=== PATIENT | male | born 2000 | race Caucasian/White ===

== ENCOUNTER 2020-03-12 10:33 | Emergency (ER) | payer OTHER ==
[~2020-03-12] VITALS: Ht 185.4 cm; Wt 180.0 kg
--- NOTE | 2020-03-12 10:40 | PHYS DOC ---
Adult General Chief Complaint Chief Complaint: CHEST PAIN [facility] HPI Patient is a 19M with no significant past medical presented to emergency department complaining of onset of chest pain. Patient states over the last 4 days he has had an intermittent sensation of pain when he takes a deep breath on the left anterior portion of the chest. Patient states that approximately 2 hours prior to arrival he had recurrence of the sensation when he took a deep breath but this caused him to become nauseous and had one episode of nonbloody nonbilious vomiting. Patient also notes some tingling in the left shoulder. Denies any dizziness, lightheadedness, fever, chills, cough, nasal congestion. Denies any sick contacts Review of Systems Review of Systems Constitutional: Denies fever or chills [] Eyes: Denies change in visual acuity, redness, or eye pain [] HENT: Denies nasal congestion or sore throat [] Respiratory: Denies cough or shortness of breath [] Cardiovascular: No additional information not addressed in HPI [] GI: Denies abdominal pain, nausea, vomiting, bloody stools or diarrhea [] : Denies dysuria or hematuria [] Musculoskeletal: Denies back pain or joint pain [] Integument: Denies rash or skin lesions [] Neurologic: Denies headache, focal weakness or sensory changes [] Endocrine: Denies polyuria or polydipsia [] All other systems were reviewed and found to be within normal limits, except as documented in this note. Allergies Allergies Allergies Coded Allergies Type Severity Reaction Last Updated Verified No Known Drug Allergies 03/12/20 No Physical Exam Physical Exam Constitutional: Well developed, well nourished, no acute distress, non-toxic appearance. [] HENT: Normocephalic, atraumatic, bilateral external ears normal, oropharynx moist, no oral exudates, nose normal. [] Eyes: PERRLA, EOMI, conjunctiva normal, no discharge. [] Neck: Normal range of motion, no tenderness, supple, no stridor. [] Cardiovascular:Heart rate regular rhythm, no murmur [] Lungs & Thorax: Bilateral breath sounds clear to auscultation. L anteriro chesat wall tenderness Abdomen: Bowel sounds normal, soft, no tenderness, no masses, no pulsatile masses. [] Skin: Warm, dry, no erythema, no rash. [] Back: No tenderness, no CVA tenderness. [] Extremities: No tenderness, no cyanosis, no clubbing, ROM intact, no edema. [] Neurologic: Alert and oriented X 3, normal motor function, normal sensory function, no focal deficits noted. [] Psychologic: Affect normal, judgement normal, mood normal. [] EKG EKG NSR, no ST or T wave changes, normal intervals, no STEMi Radiology/Procedures Radiology/Procedures EXAM: CHEST 1 VIEW History: Chest pain COMPARISON: None available. TECHNIQUE: Single portable radiograph of the chest FINDINGS: The cardiac silhouette is unremarkable. The lungs are clear thomas aterally. The costophrenic sulci are clear and well demarcated. IMPRESSION: No radiographic evidence of an acute cardiopulmonary process. Electronically signed by: Mian Michael MD (03/12/2020 11:19 AM) [id number] Heart Score Risk Factors: Risk Factors: DM, Current or recent (<one month) smoker, HTN, HLP, family history of CAD, obesity. Risk Scores: Risk Factors: DM, Current or recent (<one month) smoker, HTN, HLP, family history of CAD, obesity. Course & Med Decision Making Course & Med Decision Making Pertinent Labs and Imaging studies reviewed. (See chart for details) 19M with nonspecific left anterior chest pain without any significant ST changes on EKG. Patient signs and symptoms are most consistent with a viral syndrome or costochondritis. Will obtain an ACS rule out to make sure there is no significant abnormality if this is negative feel the patient can be safely discharged back in the custody of elderly Dragon Disclaimer [facility] Disclaimer This electronic medical record was generated, in whole or in part, using a voice recognition dictation system. Departure Departure: Impression: Primary Impression: Non-cardiac chest pain Disposition: 01 DC HOME SELF CARE/HOMELESS Patient Instructions: Chest Pain (Nonspecific) Additional Instructions: Thank you for visiting our emergency department. You are seeing for chest pain. An EKG and a chest x-ray were performed which did not demonstrate any severe abnormality. Please return to the emergency department if you have any sudden worsening of your symptoms, dizziness and lightheadedness or fever greater than 101 degrees Scripts No Active Prescriptions or Reported Meds TREVOR YE MD Mar 12, 2020 10:40
[2020-03-12] MEDS ORDERED: ACETAMINOPHEN 325 MG TABLET PO ONE (10:45)
[2020-03-12 11:05] LABS: BASO % 0 % (0-3); EOS % 1 % (0-3); HEMATOCRIT 46.7 % (39.0-53.0); HEMOGLOBIN 15.6 g/dL (13.0-17.5); LYMPH # 1.7 x10^3/uL (1.0-4.8); LYMPH % 21 % (24-48); MEAN CORPUSCULAR HEMOGLOBIN 29 pg (25-35); MEAN CORPUSCULAR HGB CONC 33 g/dL (31-37); MEAN CORPUSCULAR VOLUME 87 fL (79-100); MONO # 0.6 x10^3/uL (0.0-1.1); MONO % 8 % (0-9); NEUT # 5.6 x10^3uL (1.8-7.7); NEUT % 71 % (31-73); PLATELET COUNT 254 x10^3/uL (140-400)
[2020-03-12 11:13] LABS: CALCIUM 9.5 mg/dL (8.5-10.1); CREATININE 1.1 mg/dL (0.7-1.3); GFR 84.5; POTASSIUM 3.9 mmol/L (3.5-5.1)
[2020-03-12 11:19] LABS: ALBUMIN 4.4 g/dL (3.4-5.0); ALBUMIN/GLOBULIN RATIO 1.5 (1.0-1.7); TOTAL BILIRUBIN 0.4 mg/dL (0.2-1.0); TOTAL PROTEIN 7.3 g/dL (6.4-8.2)
--- NOTE | 2020-03-12 11:21 | RAD ---
EXAM: CHEST 1 VIEW History: Chest pain COMPARISON: None available. TECHNIQUE: Single portable radiograph of the chest FINDINGS: The cardiac silhouette is unremarkable. The lungs are clear bilaterally. The costophrenic sulci are clear and well demarcated. IMPRESSION: No radiographic evidence of an acute cardiopulmonary process. Electronically signed by: Mian Michael MD (03/12/2020 11:19 AM) [id number]
[2020-03-12 11:39] VITALS: BP 124/70
--- NOTE | 2020-03-14 09:49 | EKG ---
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
--- NOTE | 2020-03-14 13:01 | NUR ---
IP: attempt to notify facility of COVID result, left message to call back.
--- NOTE | 2020-03-14 13:14 | NUR ---
IP: notified [facility] Chavira at facility of COVID result.
== END 2020-03-12 12:32 | disposition home or self-care (01) ==
LOC: ER 10:33
DX: R07.89 Other chest pain (principal); R11.2 Nausea with vomiting, unspecified; R20.2 Paresthesia of skin; Z20.828 Contact with and (suspected) exposure to other viral communicable diseases
CPT/HCPCS: 36415; 71045; 80053; 84484; 85025; 93005; 99285; C9803; U0003